=== PATIENT | female | born 1980 | race Hispanic/Latino ===

== ENCOUNTER 2017-07-08 06:28 | Emergency (ER) | payer MEDICAID ==
[2017-07-08 06:38] VITALS: BP 107/68
--- NOTE | 2017-07-08 07:39 | XRay Report ---
Left knee 2 views: History chronic pain. Findings: The medial and lateral compartment appears unremarkable very articular surface appears normal. There is spur posterior superior aspect of the patella. No joint effusion. Impression: Spur posterior superior patella.
--- NOTE | 2017-07-08 08:35 | Emergency Department Report ---
HPI - General Chief Complaint: Extremity Injury, Lower Time Seen by Provider: 07/08/17 08:22 - HPI HPI: This is a 37-year-old female with no problem medical condition who presents ED complaining of left knee pain 3-4 days. Patient states she did not sustain any injuries to the knees. Patient states about a week ago she had been exercising and thinks she may have hurt her knee somehow. Patient denies any loss of sensation, tingling, numbness of the leg or calf pain. She denies fevers/chills/nausea/vomiting/abdominal pain/chest pain and problems. ED Past Medical Hx - Past Medical History Previous Medical History?: Yes Additional medical history: BACK INJURY / NERVE DAMAGE - Surgical History Additional Surgical History: X 3 - Social History Smoking Status: Current Every Day Smoker Substance Use Type: None - Medications Home Medications: Home Medications Medication Instructions Recorded Confirmed Last Taken Type Gabapentin [Neurontin] 300 mg PO BID 05/05/16 05/05/16 Unknown History Oxycodone HCl/Acetaminophen 1 each PO Q6HR PRN 05/05/16 05/05/16 Unknown History [Percocet 7.5/325 mg] Acetaminophen/Codeine [Tylenol 1 tab PO Q6H PRN #8 tab 07/08/17 Unknown Rx /Codeine # 3 tab] Cyclobenzaprine HCl [Flexeril 5 MG 5 mg PO TID #20 tab 07/08/17 Unknown Rx TAB] ED Review of Systems ROS: Stated complaint: KNEE PAIN Other details as noted in HPI Constitutional: denies: chills, fever Eyes: denies: eye pain, eye discharge, vision change ENT: denies: ear pain, throat pain Respiratory: denies: cough, shortness of breath, wheezing Cardiovascular: denies: chest pain, palpitations Endocrine: no symptoms reported Gastrointestinal: denies: abdominal pain, nausea, vomiting, diarrhea Genitourinary: denies: urgency, dysuria, discharge Musculoskeletal: denies: back pain, joint swelling, arthralgia Skin: denies: rash, lesions Neurological: denies: headache, weakness, numbness, paresthesias, confusion Psychiatric: denies: anxiety, depression Hematological/Lymphatic: denies: easy bleeding, easy bruising Physical Exam - Physical Exam Vital Signs: Vital Signs 07/08/17 06:34 Temperature 98.2 F Pulse Rate 76 Respiratory 17 Rate Blood Pressure 107/68 O2 Sat by Pulse 99 Oximetry Physical Exam: GENERAL: Alert and oriented x3, no apparent distress, Normal Gait, atraumatic. HEAD: Head is normocephalic and a-traumatic. NECK: Supple. Non edematous, No lymphadenopathy or thyromegaly. No C-spine tenderness LUNGS: Symetrical with respiration, No wheezing, no rales or crackles, CTAB. HEART: S1, S2 present, regular rate and rhythm without murmur, no rubs, no gallops. Non tender to palpation ABDOMEN: No organomegaly was noted,Positive bowel sounds, soft, and non- distended. Nontender to palpation on all Quadrants, NO CVA tenderness. EXTREMITIES/MUSCULOSKELETAL: No cyanosis, clubbing, rash, lesions or edema. Full ROM bilaterally. UE/LE Pulses 2+ bilaterally. LE and UE 5+ strength bilaterally, straight leg raise negative bilaterally. Left knee is nontender to palpation, no swelling, mild pain with flexing and extending, and erythematous, tenderness, Homans sign negative. NEUROLOGIC: The patient is cooperative with no focal neurologic deficits. Cranial nerves II through XII are grossly intact. Normal speech. Normal sensation in bilateral upper and lower extremities, No loss of sensation, SKIN: Warm and dry, No lesions, No ulceration or induration present. ED Course Vital Signs 07/08/17 06:34 Temperature 98.2 F Pulse Rate 76 Respiratory 17 Rate Blood Pressure 107/68 O2 Sat by Pulse 99 Oximetry ED Medical Decision Making - Medical Decision Making 37-year-old female presents to ED with Knee arthralgia. ED course: X-rays of the knee completed, x-ray shows no fractures or dislocations, etc. I discussed his findings with the patient. Patient states she cannot take Motrin due to her GERD and relaxant medication for pain. Vital signs are normal patient is in no acute distress Discussed with patient follow-up with primary care physician. Discussed the patient and take medications as prescribed. Patient has no neurological deficit. Patient is alert and oriented 3 and understands all instructions given. Discussed drowsiness effect of Flexeril makes her drowsy and not to operate machinery while taking flexeril Critical care attestation.: If time is entered above; I have spent that time in minutes in the direct care of this critically ill patient, excluding procedure time. ED Disposition Clinical Impression: Arthralgia of knee, left Disposition: DC-01 TO HOME OR SELFCARE Is pt being admited?: No Does the pt Need Aspirin: No Condition: Stable Instructions: Arthralgia (ED), Knee Exercises (GEN) Additional Instructions: Make sure to follow up with the primary care physician as discussed. Take all your medications as you've been prescribed. If you have any worsening symptoms or develop new symptoms please return to ED immediately. Prescriptions: Acetaminophen/Codeine [Tylenol /Codeine # 3 tab] 1 tab PO Q6H PRN #8 tab PRN Reason: Pain Cyclobenzaprine HCl [Flexeril 5 MG TAB] 5 mg PO TID #20 tab Referrals: ANASTASIA HURST MD [Primary Care Provider] - 3-5 Days Forms: Work/School Release Form(ED) Time of Disposition: 09:14
== END 2017-07-08 09:25 | disposition home or self-care (01) ==
LOC: ED 06:28
DX: M25.562 Pain in left knee (principal); F17.200 Nicotine dependence, unspecified, uncomplicated
CPT/HCPCS: 99283

== ENCOUNTER 2017-08-14 10:41 | Emergency (ER) | payer MEDICAID ==
[2017-08-14 11:58] VITALS: BP 107/52
--- NOTE | 2017-08-14 12:32 | XRay Report ---
LEFT SHOULDER RADIOGRAPHS INDICATION: Fall, injury. COMPARISON: None similar. FINDINGS: Frontal and Y views of the left shoulder, 3 projections demonstrate normal humeral head contour, well positioned against the glenoid. Normal acromioclavicular joint. Preserved scapular contour. Normal visualized soft tissues, left ribs and lung. CONCLUSION: No acute left shoulder radiographic abnormality, as described. Thank you for the opportunity to participate in this patient's care.
--- NOTE | 2017-08-14 12:32 | XRay Report ---
RIGHT WRIST RADIOGRAPHS INDICATION: Fall, injury. COMPARISON: None similar. FINDINGS: AP, lateral and oblique right wrist radiographs, 4 projections demonstrate intact carpal rows and also remainder imaged bones. Unremarkable soft tissues. CONCLUSION: Normal right wrist radiographs, as described. Thank you for the opportunity to participate in this patient's care.
[2017-08-14] MEDS ORDERED: FLEXERIL PO ONE (13:32)
[2017-08-14] MEDS ORDERED: TORADOL IM ONE (13:33)
--- NOTE | 2017-08-14 13:34 | Emergency Department Report ---
HPI - General Chief Complaint: Extremity Injury, Upper Time Seen by Provider: 08/14/17 13:12 - HPI HPI: Patient is a 37-year-old female with no problem medical condition who presents to ED complaining of left shoulder pad pain 1 day. 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 Patient states she did not hit her head she denies loss of consciousness. She denies fevers/chills /nausea/vomiting/blurry vision/headache. Patient states pain is throbbing and aching in nature that is localized to her shoulder back and upper arm region. ED Past Medical Hx - Past Medical History Previous Medical History?: Yes Additional medical history: BACK INJURY / NERVE DAMAGE - Surgical History Additional Surgical History: X 3 - Social History Smoking Status: Current Every Day Smoker Substance Use Type: None - Medications Home Medications: Home Medications Medication Instructions Recorded Confirmed Last Taken Type Gabapentin [Neurontin] 300 mg PO BID 05/05/16 05/05/16 Unknown History Oxycodone HCl/Acetaminophen 1 each PO Q6HR PRN 05/05/16 05/05/16 Unknown History [Percocet 7.5/325 mg] Acetaminophen/Codeine [Tylenol 1 tab PO Q6H PRN #8 tab 07/08/17 Unknown Rx /Codeine # 3 tab] Cyclobenzaprine HCl [Flexeril 5 MG 5 mg PO TID #20 tab 08/14/17 Unknown Rx TAB] Naproxen [Naprosyn] 500 mg PO BID #30 tablet 08/14/17 Unknown Rx ED Review of Systems ROS: Stated complaint: SHOULDER PAIN Other details as noted in HPI Constitutional: denies: chills, fever Eyes: denies: eye pain, eye discharge, vision change ENT: denies: ear pain, throat pain Respiratory: denies: cough, shortness of breath, wheezing Cardiovascular: denies: chest pain, palpitations Endocrine: no symptoms reported Gastrointestinal: denies: abdominal pain, nausea, diarrhea Genitourinary: denies: urgency, dysuria, frequency, hematuria, discharge Musculoskeletal: myalgia. denies: back pain, joint swelling, arthralgia Skin: denies: rash, lesions Neurological: denies: headache, weakness, paresthesias Psychiatric: denies: anxiety, depression Hematological/Lymphatic: denies: easy bleeding, easy bruising Physical Exam - Physical Exam Vital Signs: Vital Signs 08/14/17 11:54 Temperature 98.6 F Pulse Rate 59 L Respiratory 18 Rate Blood Pressure 107/52 O2 Sat by Pulse 100 Oximetry Physical Exam: GENERAL: Alert and oriented x3, no apparent distress, Normal Gait, atraumatic. HEAD: Head is normocephalic and a-traumatic. EYES: Extra ocular muscles are intact. Pupils are equal, round, and reactive to light and accommodation. NECK: Supple. Non edematous, No lymphadenopathy or thyromegaly. No C-spine tenderness LUNGS: Symetrical with respiration, No wheezing, no rales or crackles, CTAB. HEART: S1, S2 present, regular rate and rhythm without murmur, no rubs, no gallops. Non tender to palpation BACK: Full range of motion, no spinal tenderness, nontender to palpation. EXTREMITIES/MUSCULOSKELETAL: No cyanosis, clubbing, rash, lesions or edema. Full ROM on all of the joints bilaterally. UE/LE Pulses 2+ bilaterally. LE and UE 5+ strength bilaterally, mild tenderness to palpation of the posterior aspect of the shoulder muscles. Non-erythematous, non-erythematous, no deformity seen. NEUROLOGIC: The patient is cooperative with no focal neurologic deficits. Normal speech. Normal sensation in bilateral upper and lower extremities, No loss of sensation, SKIN: Warm and dry, No lesions, No ulceration or induration present. ED Course Vital Signs 08/14/17 11:54 Temperature 98.6 F Pulse Rate 59 L Respiratory 18 Rate Blood Pressure 107/52 O2 Sat by Pulse 100 Oximetry ED Medical Decision Making - Radiology Data Radiology results: report reviewed, image reviewed Fluoro Time In Minutes: LEFT SHOULDER RADIOGRAPHS INDICATION: Fall, injury. COMPARISON: None similar. FINDINGS: Frontal and Y views of the left shoulder, 3 projections demonstrate normal humeral head contour, well positioned against the glenoid. Normal acromioclavicular joint. Preserved scapular contour. Normal visualized soft tissues, left ribs and lung. CONCLUSION: No acute left shoulder radiographic abnormality, as described. Thank you for the opportunity to participate in this patient's care. Transcribed By: RS Dictated By: HUGH MACHUCA MD Electronically Authenticated By: HUGH MACHUCA MD Signed Date/Time: 08/14/17 1225 - Medical Decision Making 37-year-old female resents with shoulder and back strain status post fall from yesterday ED course: Patient received Toradol festering ED X-ray of the shoulder and wrist ordered. X-ray shows normal finding is no acute fracture or dislocation. Vital signs are normal patient is in no acute distress Discussed with patient follow-up with primary care physician. Discussed the patient and take medications as prescribed. Patient has no neurological deficit. Patient is alert and oriented 3 and understands all instructions given. Discussed drowsiness effect of Flexeril makes her drowsy and not to operate machinery while taking flexeril Critical care attestation.: If time is entered above; I have spent that time in minutes in the direct care of this critically ill patient, excluding procedure time. ED Disposition Clinical Impression: Left shoulder strain Qualifiers: Encounter type: initial encounter Qualified Code(s): S46.912A - Strain of unspecified muscle, fascia and tendon at shoulder and upper arm level, left arm , initial encounter Fall Qualifiers: Encounter type: initial encounter Qualified Code(s): W19.XXXA - Unspecified fall, initial encounter Disposition: DC-01 TO HOME OR SELFCARE Is pt being admited?: No Does the pt Need Aspirin: No Condition: Stable Instructions: Musculoskeletal Pain (ED), Trigger Point Pain (ED), Fall Prevention (ED) Additional Instructions: Make sure to follow up with the primary care physician as discussed. Take all your medications as you've been prescribed. If you have any worsening symptoms or develop new symptoms please return to ED immediately. Prescriptions: Cyclobenzaprine HCl [Flexeril 5 MG TAB] 5 mg PO TID #20 tab Naproxen [Naprosyn] 500 mg PO BID #30 tablet Referrals: PRIMARY CAREMD [Primary Care Provider] - 3-5 Days [facility] [Outside] - 3-5 Days [facility] [Outside] - 3-5 Days [facility] [Outside] - 3-5 Days Forms: Work/School Release Form(ED) Time of Disposition: 14:19
== END 2017-08-14 14:25 | disposition home or self-care (01) ==
LOC: ED 10:41
DX: S46.912A Strain of unspecified muscle, fascia and tendon at shoulder and upper arm level, left arm, initial encounter (principal); W18.30XA Fall on same level, unspecified, initial encounter; Y93.89 Activity, other specified; Y92.89 Other specified places as the place of occurrence of the external cause; Y99.8 Other external cause status; F17.200 Nicotine dependence, unspecified, uncomplicated
CPT/HCPCS: 73030; 73110; 96372; 99283; J1885

== ENCOUNTER 2017-08-23 10:11 | Emergency (ER) | payer MEDICAID ==
--- NOTE | 2017-08-23 11:41 | XRay Report ---
XRAY LEFT ANKLE THREE VIEWS: 08/23/17 10:11:00 CLINICAL: Fall and pain. FINDINGS: The ankle mortise is intact. However, moderate tibiotalar arthritis. No fracture or dislocation. Mild lateral soft tissue edema. No soft tissue air or foreign body. IMPRESSION: Soft tissue injury and arthritis.
[2017-08-23] MEDS ORDERED: TYLENOL PO ONE (14:52)
--- NOTE | 2017-08-23 14:56 | Emergency Department Report ---
ED Lower Extremity HPI - General Chief Complaint: Extremity Injury, Lower Stated Complaint: LEFT ANKLE PAIN Time Seen by Provider: 08/23/17 14:14 Source: patient Mode of arrival: Ambulatory Limitations: No Limitations - History of Present Illness Initial Comments: This is a 37-year-old female nontoxic, well nourished in appearance, no acute signs of distress presents to the ED with c/o of left ankle pain x1 pain. Patient stated she has a history of a fracture in the left ankle 8 years ago. Patient stated last night she was walking in the drive way and slipped and inverted her ankle. Patient denies any other trauma. Denies head trauma. Patient describes pain as aching with level of 8/10. Patient denies any numbness , tingling, fever, chills, headache, nausea, vomiting, chest pain, shortness of breathe. Patient describes pain as aching with level of 8/10. Patient states allergies to PCN. Denies significant past medical history. MD Complaint: ankle injury -: Last night Injury: Ankle: Left Type of Injury: inversion Place: home Severity: mild Severity scale (0 -10): 8 Improves With: nothing Worsens With: nothing Context: fall Associated Symptoms: ambulatory. denies: snap/pop sensation, swelling, numbness , tingling, unable to bear weight, able to partially bear weight - Related Data Home Medications Medication Instructions Recorded Confirmed Last Taken Gabapentin [Neurontin] 300 mg PO BID 05/05/16 05/05/16 Unknown Oxycodone HCl/Acetaminophen 1 each PO Q6HR PRN 05/05/16 05/05/16 Unknown [Percocet 7.5/325 mg] Previous Rx's Medication Instructions Recorded Last Taken Type Acetaminophen/Codeine [Tylenol 1 tab PO Q6H PRN #8 tab 07/08/17 Unknown Rx /Codeine # 3 tab] Cyclobenzaprine HCl [Flexeril 5 MG 5 mg PO TID #20 tab 08/14/17 Unknown Rx TAB] Naproxen [Naprosyn] 500 mg PO BID #30 tablet 08/14/17 Unknown Rx Acetaminophen 500 mg PO Q8H #20 capsule 08/23/17 Unknown Rx Allergies Allergy/AdvReac Type Severity Reaction Status Date / Time Penicillins Allergy Unknown Verified 05/05/16 13:29 ED Review of Systems ROS: Stated complaint: LEFT ANKLE PAIN Other details as noted in HPI Constitutional: denies: chills, fever Eyes: denies: eye pain, eye discharge, vision change ENT: denies: ear pain, throat pain Respiratory: denies: cough, shortness of breath, wheezing Cardiovascular: denies: chest pain, palpitations Endocrine: no symptoms reported Gastrointestinal: denies: abdominal pain, nausea, diarrhea Genitourinary: denies: urgency, dysuria, discharge Musculoskeletal: arthralgia. denies: back pain, joint swelling Skin: denies: rash, lesions Neurological: denies: headache, weakness, paresthesias Psychiatric: denies: anxiety, depression Hematological/Lymphatic: denies: easy bleeding, easy bruising ED Past Medical Hx - Past Medical History Previous Medical History?: Yes Additional medical history: BACK INJURY / NERVE DAMAGE - Surgical History Past Surgical History?: Yes Additional Surgical History: X 3 - Social History Smoking Status: Current Every Day Smoker Substance Use Type: None - Medications Home Medications: Home Medications Medication Instructions Recorded Confirmed Last Taken Type Gabapentin [Neurontin] 300 mg PO BID 05/05/16 05/05/16 Unknown History Oxycodone HCl/Acetaminophen 1 each PO Q6HR PRN 05/05/16 05/05/16 Unknown History [Percocet 7.5/325 mg] Acetaminophen/Codeine [Tylenol 1 tab PO Q6H PRN #8 tab 07/08/17 Unknown Rx /Codeine # 3 tab] Cyclobenzaprine HCl [Flexeril 5 MG 5 mg PO TID #20 tab 08/14/17 Unknown Rx TAB] Naproxen [Naprosyn] 500 mg PO BID #30 tablet 08/14/17 Unknown Rx Acetaminophen 500 mg PO Q8H #20 capsule 08/23/17 Unknown Rx ED Physical Exam - General Limitations: No Limitations General appearance: alert, in no apparent distress - Head Head exam: Present: atraumatic, normocephalic - Eye Eye exam: Present: normal appearance, PERRL, EOMI Pupils: Present: normal accommodation - ENT ENT exam: Present: normal exam, normal orophraynx, mucous membranes moist, TM's normal bilaterally, normal external ear exam - Neck Neck exam: Present: normal inspection, full ROM. Absent: tenderness, meningismus, lymphadenopathy, thyromegaly - Respiratory Respiratory exam: Present: normal lung sounds bilaterally. Absent: respiratory distress, wheezes, rales, rhonchi, stridor, chest wall tenderness, accessory muscle use, decreased breath sounds, prolonged expiratory - Cardiovascular Cardiovascular Exam: Present: regular rate, normal rhythm, normal heart sounds. Absent: bradycardia, tachycardia, irregular rhythm, systolic murmur, diastolic murmur, rubs, gallop - GI/Abdominal GI/Abdominal exam: Present: soft, normal bowel sounds. Absent: distended, tenderness, guarding, rebound, rigid, diminished bowel sounds - Rectal Rectal exam: Present: deferred - Extremities Exam Extremities exam: Present: normal inspection, full ROM, tenderness, normal capillary refill. Absent: pedal edema, joint swelling, calf tenderness - Expanded Lower Extremity Exam Left Hip exam: Present: normal inspection, full ROM Upper Leg exam: Present: normal inspection, full ROM Knee exam: Present: normal inspection, full ROM Lower Leg exam: Present: normal inspection, full ROM. Absent: Walt's sign Ankle exam: Present: normal inspection, full ROM, tenderness. Absent: swelling , abrasion, laceration, ecchymosis, deformity, crepidus, dislocation, erythema, anterior draw sign Foot/Toe exam: Present: normal inspection, full ROM. Absent: tenderness, swelling, abrasion, laceration, ecchymosis, deformity, crepidus, dislocation, erythema, amputation, puncture wound, foreign body, calcaneal tenderness, tenderness at base of 5th metatarsal, nail avulsion, subungual hematoma Neuro vascular tendon exam: Present: no vascular compromise. Absent: pulse deficit, abnormal cap refill, motor deficit, sensory deficit, tendon deficit, extremity cold to touch, pallor, abnormal 2-point discrimination, decreased fine /light touch, foot drop, peroneal nerve deficit, significant pain with passive ROM of distal joint Gait: Positive: observed and limited by pain 1 - pain - Back Exam Back exam: Present: normal inspection, full ROM. Absent: tenderness, CVA tenderness (R), CVA tenderness (L), muscle spasm, paraspinal tenderness, rash noted - Neurological Exam Neurological exam: Present: alert, oriented X3, CN II-XII intact, normal gait, reflexes normal - Psychiatric Psychiatric exam: Present: normal affect, normal mood - Skin Skin exam: Present: warm, dry, intact, normal color. Absent: rash ED Course Vital Signs 08/23/17 10:54 Temperature 97.6 F Pulse Rate 80 Respiratory 16 Rate Blood Pressure 136/75 O2 Sat by Pulse 99 Oximetry - Reevaluation(s) Reevaluation #1: 08/23/17 14:57 Patient is speaking in full sentences with no signs of distress noted. ED Lower Extremity MDM - Medical Decision Making This is a 37-year-old female that presents with left ankle sprain. Patient is stable and was examined by me. Xray has been obtained and dictated by radiologist within normal exam. Patient is notified of xray results with no questions noted. Patient received Tylenol in the ED due to stating that NSAIDS upset her stomach and does not want it. Patient was instructed to RICE therapy. Patient received Ankle stirrup. Patient was instructed to Follow-up with a orthopedic doctor in 3-5 days or if symptoms worsen and continue return to emergency room as soon as possible. At time time of discharge, the patient does not seem toxic or ill in appearance. No acute signs of distress noted. Patient agrees to discharge treatment plan of care. No further questions noted by the patient. Critical care attestation.: If time is entered above; I have spent that time in minutes in the direct care of this critically ill patient, excluding procedure time. ED Disposition Clinical Impression: Ankle sprain Qualifiers: Encounter type: initial encounter Involved ligament of ankle: unspecified ligament Laterality: left Qualified Code(s): S93.402A - Sprain of unspecified ligament of left ankle, initial encounter Disposition: TO HOME OR SELFCARE Is pt being admited?: No Does the pt Need Aspirin: No Condition: Stable Instructions: Ankle Sprain (ED), Ankle Stirrup Splint (ED), RICE Therapy (ED), Acetaminophen (By mouth) Additional Instructions: Follow-up with a orthopedic doctor in 3-5 days or if symptoms worsen and continue return to emergency room as soon as possible. Rest, elevate and ice extremity. Prescriptions: Acetaminophen 500 mg PO Q8H #20 capsule Referrals: PRIMARY CAREMD [Primary Care Provider] - 3-5 Days SARAH SILVER MD [Staff Physician] - 3-[address] [facility] [Outside] - 3-5 Days [facility] [Outside] - 3-5 Days Forms: Work/School Release Form(ED)
[2017-08-23 15:24] VITALS: BP 132/82
== END 2017-08-23 15:24 | disposition home or self-care (01) ==
LOC: ED 10:11
DX: S93.402A Sprain of unspecified ligament of left ankle, initial encounter (principal); F17.200 Nicotine dependence, unspecified, uncomplicated; Z88.0 Allergy status to penicillin; W01.0XXA Fall on same level from slipping, tripping and stumbling without subsequent striking against object, initial encounter; Y93.89 Activity, other specified; Y92.89 Other specified places as the place of occurrence of the external cause; Y99.8 Other external cause status

== ENCOUNTER 2019-04-11 15:44 | Emergency (ER) | payer MEDICAID ==
[2019-04-11 17:09] VITALS: BP 129/75
--- NOTE | 2019-04-11 17:09 | Event Note ---
ED Screening Note ED Screening Note: pt c/o DE LA ROSA had chiari malformation surgery in 11/2018 at [facility] she has an MRI scheduled for april 14 This initial assessment/diagnostic orders/clinical plan/treatment(s) is/are subject to change based on patients health status, clinical progression and re- assessment by fellow clinical providers in the ED. Further treatment and workup at subsequent clinical providers discretion. Patient/guardian urged not to elope from the ED as their condition may be serious if not clinically assessed and managed. Initial orders include: CT head, labs
== END 2019-04-11 21:30 | disposition left against medical advice (07) ==
LOC: ED 15:44
DX: R51 Headache (principal); R42 Dizziness and giddiness; Z53.21 Procedure and treatment not carried out due to patient leaving prior to being seen by health care provider

== ENCOUNTER 2021-09-23 12:42 | Emergency (ER) | payer MEDICAID ==
[2021-09-23] MEDS ORDERED: IBUPROFEN 800 MG TAB PO ONE (13:00)
--- NOTE | 2021-09-23 13:49 | Emergency Department Report ---
Upper Extremity - HPI Chief Complaint: Extremity Problem,Nontraumatic Stated Complaint: KNUCKLE INJURY Time Seen by Provider: 09/23/21 12:59 Occurred When: >5 Days Mechanism: Other Severity: mild Symptoms: Yes Pain with Movement, No Deformity, No Limited Range of Movement, No Numbness, No Weakness, No Swelling, No Bruising/Ecchymosis, No Laceration or Abrasion Other History: 41 yo with left finger/knuckle pain. She states she moved last week and since then it has hurt. She denies any identifiable trauma/fall/ etc. neurovasc intact ED Review of Systems ROS: Stated complaint: KNUCKLE INJURY Other details as noted in HPI Comment: All other systems reviewed and negative ED Past Medical Hx - Past Medical History Previous Medical History?: Yes Additional medical history: BACK INJURY / NERVE DAMAGE. gallstones. arnold- chiari malformation - Surgical History Past Surgical History?: Yes Hx Cholecystectomy: Yes Additional Surgical History: X 3. arnold-chiari malformation- correction with decompression - Social History Smoking Status: Current Some Day Smoker Substance Use Type: None Upper Extremity Exam - Exam General: Vital signs noted. No distress. Alert and acting appropriately. Head and Torso: No HEENT Abnormality, No Neck Tenderness, No Chest/Lungs Abnormality, No Abdominal Tenderness, No Back Tenderness Shoulder Exam: Yes Normal Range of Motion in Shoulder, No Shoulder Tenderness, No Clavicle Tenderness, No Shoulder Deformity, No AC Joint Tenderness Arm Exam: No Arm/Humerus Tenderness, No Arm Deformity Elbow: No Elbow Tenderness, No Normal Range of Motion in Elbow, No Elbow Deformity Forearm: No Forearm Tenderness, No Forearm Deformity, No Pain with Pronation, No Pain with Supination Wrist: Yes Normal ROM in Wrist, No Wrist Tenderness, No Wrist Deformity, No Snuffbox Tenderness, No Pain with Axial Thumb Compression Hand: Yes Normal ROM in Digit(s), No Hand Tenderness, No Hand Deformity, No Digit Tenderness, No Digit(s) Deformity, No Tendon Dysfunction CMS Exam: No Broken Skin, No Normal Distal Pulses, No Normal Capillary Refill, No Normal Distal Sensation ED Course Vital Signs 09/23/21 12:56 Temperature 98.5 F Pulse Rate 60 Respiratory 18 Rate Blood Pressure 114/63 O2 Sat by Pulse 99 Oximetry ED Medical Decision Making - Radiology Data Radiology results: report reviewed, image reviewed - Medical Decision Making Vital Signs 09/23/21 12:56 Temperature 98.5 F Pulse Rate 60 Respiratory 18 Rate Blood Pressure 114/63 O2 Sat by Pulse 99 Oximetry neurovasc intact full rom xray neg medicated with motrin for pain dc home with dc plan of care including diet/activity/meds and follow up. She verbalizes understanding. - Differential Diagnosis ro fx Critical care attestation.: If time is entered above; I have spent that time in minutes in the direct care of this critically ill patient, excluding procedure time. ED Disposition Clinical Impression: Hand pain Disposition: 01 HOME / SELF CARE / HOMELESS Is pt being admited?: No Does the pt Need Aspirin: No Condition: Stable Instructions: Hand Pain Additional Instructions: rest ice elevate follow up with pcp if pain persists referral below over the counter motrin or tylenol for pain xray normal today Referrals: JOHN AARON MD [Staff Physician] - 3-5 Days Time of Disposition: 13:49
--- NOTE | 2021-09-23 13:56 | XRay Report ---
LEFT HAND 3 VIEWS INDICATION: pain. COMPARISON: None. IMPRESSION: No acute osseous abnormality or joint pathology is detected. The soft tissues are unrem arkable. Signer Name: Tim Nino Jr, MD Signed: 09/23/2021 1:52 PM Workstation Name: [id number]
[2021-09-23 14:31] VITALS: BP 102/65
== END 2021-09-23 14:31 | disposition home or self-care (01) ==
LOC: ED 12:42
DX: M79.642 Pain in left hand (principal); Z98.890 Other specified postprocedural states; F17.200 Nicotine dependence, unspecified, uncomplicated
CPT/HCPCS: 99283